=== PATIENT | female | born 2000 | race Caucasian/White ===

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

== ENCOUNTER 2022-01-28 17:07 | Emergency (ER) | payer OTHER, SELFPAY ==
--- NOTE | 2022-01-28 17:13 | ED.FEMALEGU ---
HPI - Female Genitourinary General Chief complaint: Urogenital-Female Stated complaint: UTI Time Seen by Provider: 01/28/22 17:13 Source: patient, RN notes reviewed and old records reviewed Mode of arrival: ambulatory Limitations: no limitations History of Present Illness HPI Narrative: 21-year-old female presents to the [facility] with mom with complaints of cloudy urine. She was at the plastic surgeon last Saturday and mom reports that she had a fever Almost to 100 , started giving her Tylenol. Patient had presented with her aunt. Aunt states that she knew something was wrong when she just got cranky and would not take out the garbage. Denies any chest pain, abdominal pain. No nausea vomiting or diarrhea. Reports fevers between 99 and 100 MD elicited complaint: UTI Related Data Home Medications Medication Instructions Recorded Confirmed clonidine HCl [Catapres] 0.2 mg PO DAILY 12/16/19 01/28/22 hydroxyzine HCl 50 mg PO BID 12/16/19 01/28/22 norethindrone-e.estradiol-iron 1 tablet PO DAILY 12/16/19 01/28/22 [June12/14 (28)] risperidone [Risperdal] 0.25 mg PO HS 12/16/19 01/28/22 sertraline [Zoloft] 100 mg PO DAILY 12/16/19 01/28/22 Allergies Allergy/AdvReac Type Severity Reaction Status Date / Time No Known Allergies Allergy Other Uncoded 06/04/20 10:07 Review of Systems Review of Systems: All systems reviewed & are unremarkable except as noted in HPI and below Constitutional: Constitutional: Reports as per HPI, Denies chills and Reports fatigue Eyes: Eyes: Reports no additional eye complaints ENT: Reports system reviewed and no additional complaints, except as documented Cardiovascular: Cardiovascular: Reports no additional cardiovascular complaints and Denies chest pain Respiratory: Respiratory: Reports no additional respiratory complaints, Denies cough and Denies dyspnea Gastrointestinal: Gastrointestinal: Reports no additional gastrointestinal complaints, Denies abdominal pain, Denies diarrhea, Denies nausea and Denies vomiting Genitourinary: Genitourinary: Reports as per HPI, Denies hematuria, Denies nocturia, Denies dysuria, Denies flank pain, Denies urinary incontinence and Denies vaginal discharge Comments: Cloudy urine Musculoskeletal: Musculoskeletal: Reports no additional musculoskeletal complaints and Denies back pain Integumentary/Breasts: Skin/Breast: Reports system reviewed and no additional complaints, except as docu Neurologic: Reports system reviewed and no additional complaints, except as documented Psychiatric: Psychiatric: Reports no additional psychiatric complaints Endocrine: Endocrine: Denies fatigue Allergic/Immunologic: Allergic/Immunologic: Reports no additional allergic/immunologic complaints PMFSH Past Medical History Medical History (Updated 01/28/22 @ 18:13 by Beverley Velez APRN) Anxiety Depression Insomnia Family History Family History Other No active medical problems Social History Social History Smoking status: Never smoker Alcohol intake: never Gender identity (if verbalized by the patient): Female Comments At the time of my signature, I reviewed and agree with the nursing past medical, surgical, social, and family history. There is no relevant family history pertinent to the patient complaint. Exam Const: General: healthy appearing, no acute distress and alert Nutritional Appearance: well nourished Orientation/consciousness: patient oriented x3 Limitations: no limitations HENMT: Head: normal to inspection Ears: external ears normal Eyes: Conjunctivae: conjunctivae normal Pupils: Equal, round and reactive pupils present Neck: Neck: normal visual inspection, no lymphadenopathy and no meningeal signs Chest: Chest palpation & inspection: normal inspection of the chest and abnormal inspection of the chest Resp: Effort & I
[2022-01-28 17:18] VITALS: BP 113/76; PULSE 93; RESP 16; TEMP 37; O2SAT 100
[2022-01-28 17:22] VITALS: BP 113/76; PULSE 93; RESP 16; TEMP 37; O2SAT 100
== END 2022-01-28 17:41 | disposition home or self-care (01) ==
PROVIDERS: Emergency Provider Nurse Practitioner
DX: N39.0 Urinary tract infection, site not specified (principal); F41.9 Anxiety disorder, unspecified; F32.A Depression, unspecified
CPT/HCPCS: 81003; 87077; 87086; 87186; 99213; G0463

== ENCOUNTER 2022-02-09 15:42 | Emergency (ER) | payer OTHER, SELFPAY ==
[2022-02-09 15:44] VITALS: BP 129/80; PULSE 110; RESP 14; O2SAT 97
--- NOTE | 2022-02-09 16:10 | PC.NURSE ---
contacted poison control, spoke with maura rodríguez.
--- NOTE | 2022-02-09 16:12 | PC.NURSE ---
pt reports she ingested the whole bottle of clonidine 0.2mg. States her father just and wants to kill herself to be with him. Reports hx of anxiety and depression. States she does self harm such as self mutilation and bites herself. Reports she feels safe at home but not safe with herself. States this is the first time she has actually thought of taking her life.
--- NOTE | 2022-02-09 16:36 | ED.PSYCH ---
HPI - Psych General Chief Complaint: Psychiatric Symptoms <Luis Eduardo Acosta MD - Last Filed: 02/09/22 21:57> Stated Complaint: overdose <Luis Eduardo Acosta MD - Last Filed: 02/09/22 21:57> Time Seen by Provider: 02/09/22 15:50 <Luis Eduardo Acosta MD - Last Filed: 02/09/22 21:57> Source: patient <Luis Eduardo Acosta MD - Last Filed: 02/09/22 21:57> History of Present Illness HPI Narrative: Patient presents with a clonidine ingestion. Reports she was trying to kill herself she had her clonidine filled on the 10th with 30 tablets which she took the whole bottle reports diffuse body aches. She denies prior suicide attempts but does report prior psychiatric admissions. Denies any lightheadedness or dizziness she does report nausea and vomiting. <Luis Eduardo Acosta MD - Last Filed: 02/09/22 21:57> Related Data Home Medications: Home Medications Medication Instructions Recorded Confirmed clonidine HCl [Catapres] 0.2 mg PO DAILY 12/16/19 01/28/22 hydroxyzine HCl 50 mg PO BID 12/16/19 01/28/22 norethindrone-e.estradiol-iron 1 tablet PO DAILY 12/16/19 01/28/22 [12/14 (28)] risperidone [Risperdal] 0.25 mg PO HS 12/16/19 01/28/22 sertraline [Zoloft] 100 mg PO DAILY 12/16/19 01/28/22 <Luis Eduardo Acosta MD - Last Filed: 02/09/22 21:57> Allergies/Adverse Reactions: Allergies Allergy/AdvReac Type Severity Reaction Status Date / Time No Known Allergies Allergy Other Uncoded 06/04/20 10:07 <Luis Eduardo Acosta MD - Last Filed: 02/09/22 21:57> Review of Systems Review of Systems: CONSTITUTIONAL: Denies fever, chills, or sweats. EYES: Denies visual changes, redness, or discharge. ENT: Denies rhinorrhea, congestion, sore throat, or otalgia. CARDIOVASCULAR: Denies chest pain, palpitations, or edema. RESPIRATORY: Denies cough or dyspnea. GASTROINTESTINAL: Denies abdominal pain, nausea, vomiting, or diarrhea. GENITOURINARY: Denies dysuria or hematuria. SKIN: Denies rash or itching. MUSCULOSKELETAL: Denies back pain, joint pain, or myalgia. NEUROLOGIC: Denies headache, numbness, dizziness, or weakness. PSYCHIATRIC: Denies anxiety or depression. <Luis Eduardo Acosta MD - Last Filed: 02/09/22 21:57> All systems reviewed & are unremarkable except as noted in HPI and below <Luis Eduardo Acosta MD - Last Filed: 02/09/22 21:57> PMFSH Past Medical History Medical History: Medical History Anxiety Depression Insomnia <Luis Eduardo Acosta MD - Last Filed: 02/09/22 21:57> Family History Family History: Family History Other No active medical problems <Luis Eduardo Acosta MD - Last Filed: 02/09/22 21:57> Social History Social History: Social History Smoking status: Never smoker Alcohol intake: never Substance use type: does not use Gender identity (if verbalized by the patient): Female <Luis Eduardo Acosta MD - Last Filed: 02/09/22 21:57> Exam Narrative: GENERAL: Well-appearing, well-nourished, and in no acute distress. HEAD: Normocephalic, atraumatic. EYES: PERRLA and EOMI. ENT: Nares clear, no rhinorrhea or epistaxis. Mucous membranes moist. NECK: Supple. No masses. No JVD CHEST: Clear to auscultation. No respiratory distress. No wheezes rales or rhonchi HEART: Regular rate and rhythm. No murmur heard. Normal peripheral pulses. ABDOMEN: Soft, nontender, nondistended, normal active bowel sounds. EXTREMITIES: Normal range of motion. No edema. SKIN: Warm, dry, no rash. NEURO: No focal deficits. Alert and oriented x3. <Luis Eduardo Acosta MD - Last Filed: 02/09/22 21:57> Course Course Emergency Course: 02/10/22 0844 care turned over to myself at shift change seen by myself agree with initial H&P. Currently awaiting psychiatric placement 02/10/22 1800 patient accepted to [facility]
--- NOTE | 2022-02-09 16:38 | ECG_ITS ---
Measurements Intervals [place] Rate: 90 P: 27 [place]: 127 QRS: 35 QRSD: 88 T: 26 QT: 348 QTc: 427 Interpretive Statements SINUS RHYTHM NORMAL ECG Electronically Signed On 02-10-2022 9:22:03 CDT by Gerber Curtis M.D.
[2022-02-09 17:26] LABS: Basophils Absolute Auto 0.1 K/mm3 (0.0-0.1); Basophils Percent Auto 0.4 % (0.2-1.2); Eosinophils Absolute Auto 0.1 K/mm3 (0-0.3); Hemoglobin 14.7 g/dL (12.0-15.0); Immature Granulocyte Absolute 0.04 K/mm3 (0.00-0.031); Immature Granulocyte Percent A 0.3 % (0-0.5); Lymphocytes Absolute Auto 2.98 K/mm3 (0.9-3.2); Lymphocytes Percent Auto 24.2 % (18.3-44.2); Mean Corpuscular HGB Conc 32.7 g/dl (32-36); Mean Corpuscular Hemoglobin 28.4 pg (26-34); Mean Corpuscular Volume 86.9 fl (80-100); Mean Platelet Volume 10.2 fl (7.4-10.4); Monocytes Absolute Auto 0.5 K/mm3 (0.1-0.6); Monocytes Percent Auto 4.1 % (2.6-8.5); Neutrophils Absolute Auto 8.6 K/mm3 (1.3-6.7); Platelet Count Result 340 k/mm3 (150-375); Red Blood Count 5.18 M/mm3 (4.2-5.4); Red Cell Distribution Width 13.3 % (11.5-14.5); White Blood Count 12.3 K/mm3 (4.5-10.0)
[2022-02-09 17:29] LABS: Add Urine Microscopic? NO; Appearance Urine Clear (Clear); Bilirubin Urine Negative (Negative); Blood Urine Negative (Negative); Color Urine Yellow (Yellow); Glucose Urine UA Negative (Negative); Ketones Urine Negative (Negative); Leukocyte Esterase Ur Negative LEU/UL (Negative); Nitrate Urine Negative (Negative); Protein Urine Negative (Negative); Specific Grav Ur 1.009 (1.001-1.035); Urobilinogen Urine Negative mg/dL (<2.0)
[2022-02-09 17:34] LABS: Acetaminophen < 10 ug/mL (10-30); Ethanol < 10 mg/dL (<10); Salicylate < 1.0 mg/dL (2-20)
[2022-02-09 17:35] LABS: Alanine Aminotransferase 20 U/L (4-35); Albumin Level 4.5 g/dL (3.5-5.1); Alkaline Phosphatase 74 U/L (38-126); Anion Gap 10 mmol/L (8-16); Aspartate Amino Transferase 23 U/L (14-36); Bilirubin,Total 0.3 mg/dL (0.2-1.3); Blood Urea Nitrogen 10 mg/dL (7-17); Carbon Dioxide 25 mmol/L (22-30); Chloride 106 mmol/L (98-107); Estimated CRCL calculation 125 ml/min; Estimated Glomerular Filt Rate > 60; Glucose 80 mg/dL (65-110); Potassium 4.1 mmol/L (3.4-5.0); Sodium 141 mmol/L (137-145)
[2022-02-09 17:43] LABS: Amphetamine Screen Urine Negative (Negative); Barbiturate Screen Urine Negative (Negative); Benzodiazepines Screen Urine Negative (Negative); Cannabinoid Screen Urine Negative (Negative); Cocaine Screen Urine Negative (Negative); Methadone Screen Urine Negative (Negative); Opiate Screen Urine Negative (Negative); Phencyclidine Screen Urine Negative (Negative)
--- NOTE | 2022-02-09 18:45 | PC.NURSE ---
Aunt of pt at bedside. Pt reassessed and asked questions for CSSR. Pt reports she no longer has thoughts of self harm or suicidal ideations. States she is feeling alot better. Pt given meal tray. Poison control called for update. Stated to continue monitoring patient for 4-6 hours. aware.
--- NOTE | 2022-02-09 19:50 | PC.NURSE ---
Pt resting on stretcher with no complaints at this time. Pt states she feels ok. Pt updated.
[2022-02-09 19:51] VITALS: BP 120/65; PULSE 94; RESP 18; O2SAT 100
--- NOTE | 2022-02-09 20:02 | PC.NURSE ---
RN spoke pts aunt Babs . Gave her an update.
[2022-02-09 20:43] VITALS: BP 115/70; PULSE 93; RESP 16; O2SAT 100
--- NOTE | 2022-02-09 20:43 | PC.NURSE ---
Pt updated on plans to speak with metal casting trades worker. Pt has no questions. Pt resting comfortably watching tv at tis time.
--- NOTE | 2022-02-09 20:49 | PC.NURSE ---
Crisis number called. States they will dispatch someone to the ER.
--- NOTE | 2022-02-09 21:03 | PC.NURSE ---
Crisis requesting us to contact [facility] as pt should qualify.
--- NOTE | 2022-02-09 21:15 | PC.NURSE ---
[facility] CONTACTED AND WILL SEND SOMEONE TO EVALUATE PATIENT WITHIN THE NEXT 2 HOURS.
--- NOTE | 2022-02-09 21:29 | PC.NURSE ---
Poison Control called to close pts case.
--- NOTE | 2022-02-09 21:40 | PC.NURSE ---
Kayleigh from [facility] states she will be here in about 30 minutes.
[2022-02-09 21:59] LABS: SARS-CoV-2 RNA PCR Negative
--- NOTE | 2022-02-09 22:30 | PC.NURSE ---
Crisis work speaking with pt at this time.
--- NOTE | 2022-02-09 22:54 | PC.NURSE ---
Crisis workers states pt will need placement. Will work on finding placement for pt.
[2022-02-09] MEDS: LORazepam (*CRX) 0.5 MG TABLET PO (23:30)
--- NOTE | 2022-02-09 23:45 | PC.NURSE ---
Pt tearful and crying states I do not want my mom mad at me. RN discussed plan of care for patient. Pt now speaking with aunt on what is going on.
--- NOTE | 2022-02-10 01:06 | PC.NURSE ---
Pt resting on stretcher. Pt aware waiting for placement at this time. Pt has no questions at this time.
[2022-02-10 01:07] VITALS: BP 125/58; PULSE 96; RESP 20; O2SAT 95
--- NOTE | 2022-02-10 02:54 | PC.NURSE ---
Pt becoming more upset. Pt rocking back and forth. ERP made aware. Order for Ativan
[2022-02-10] MEDS: LORazepam (*CRX) 0.5 MG TABLET PO (02:57)
--- NOTE | 2022-02-10 03:06 | PC.NURSE ---
Sitter at bedside. Pt has no belongings. Will monitor. Still waiting for placement.
--- NOTE | 2022-02-10 04:45 | PC.NURSE ---
Pt resting on stretcher. Pt appears calm at this time. No update from Crisis. Sitter remains at bedside.
[2022-02-10 06:06] VITALS: BP 128/80; PULSE 96; RESP 16; TEMP 36.6; O2SAT 96
--- NOTE | 2022-02-10 06:06 | PC.NURSE ---
Pt resting on stretcher with no needs at this time. Pt has no complaints. Vitals obtained. Pt sleeping. Will continue to monitor.
--- NOTE | 2022-02-10 06:09 | PC.NURSE ---
Message left with crisis answering line for update on placement for pt.
--- NOTE | 2022-02-10 06:27 | PC.NURSE ---
Kayleigh states she has no update on placement will continue to reach out for bed.
--- NOTE | 2022-02-10 07:09 | PC.NURSE ---
Report given to Valeria
--- NOTE | 2022-02-10 07:39 | PC.NURSE ---
assuming care of pt. ordered pt safety breakfast tray. pt resting w/ equal chest rise and fall. sitter at bedside.
--- NOTE | 2022-02-10 11:42 | PC.NURSE ---
Dr. Cain still wanting sitter to stay at bedside for elopement risk.
--- NOTE | 2022-02-10 11:45 | PC.NURSE ---
ordered pt safety lunch tray.
--- NOTE | 2022-02-10 14:12 | PC.NURSE ---
Jeremy called and requested for chart to be faxed to [facility] at [phone].
--- NOTE | 2022-02-10 14:32 | PC.NURSE ---
voluntary paperwork reviewed w/ pt and filled out. copy given to pt. faxed over chart and voluntary paperwork to [facility].
--- NOTE | 2022-02-10 15:34 | PC.NURSE ---
[facility] called and is accepting pt. accepting doctor is Dr. Ortega. [facility] will call back with room number and phone number to give report.
[2022-02-10 16:45] VITALS: BP 128/72; PULSE 87; RESP 17; O2SAT 100
--- NOTE | 2022-02-10 16:57 | PC.NURSE ---
ordered pt safety dinner tray.
--- NOTE | 2022-02-10 17:10 | PC.NURSE ---
called [facility] to check on status of a bed. they state to call back in the next 15 minutes.
--- NOTE | 2022-02-10 18:06 | PC.NURSE ---
called for update on bed. no answer. left a voicemail.
--- NOTE | 2022-02-10 18:33 | PC.NURSE ---
Pt to go to [facility] Room 5311B. [facility]
--- NOTE | 2022-02-10 19:10 | PC.NURSE ---
[facility] calling ED back to take report for bed 5311B.
--- NOTE | 2022-02-10 19:26 | PC.NURSE ---
Patient scored no risk on columbia scale, technical solutions engineer notified and ERP stated still requests sitter at bedside. Patient moved to room 15 at this time. Patient awaiting transport.
--- NOTE | 2022-02-10 19:31 | PC.NURSE ---
Per ED MD Hilton, pt still requires sitter although NO RISK on columbia. Pt moved to ED 15 at this time with sitter at bedside.
--- NOTE | 2022-02-10 19:34 | PC.NURSE ---
report given to Zoya NORTON.
--- NOTE | 2022-02-10 20:37 | PC.NURSE ---
[facility] here for patient transport to [facility]. Patient calm and cooperative upon leaving the ED. All of patient belongings and chart sent with patient and EMS.
== END 2022-02-10 20:38 ==
PROVIDERS: Emergency Medicine; Emergency Provider Emergency Medicine; PCP Pediatrics
DX: T46.5X2A Poisoning by other antihypertensive drugs, intentional self-harm, initial encounter (principal); Z20.822 Contact with and (suspected) exposure to COVID-19; F41.9 Anxiety disorder, unspecified; F32.A Depression, unspecified
CPT/HCPCS: 36415; 80053; 80307; 81003; 81025; 84443; 85025; 93005; 99285; A9270; C9803; U0003; U0005

== ENCOUNTER 2022-03-23 18:00 | Emergency (ER) | payer OTHER, SELFPAY ==
[2022-03-23 18:23] VITALS: BP 134/83; PULSE 97; RESP 16; TEMP 36.7; O2SAT 100
--- NOTE | 2022-03-23 20:36 | ED.RECABL ---
HPI - Recheck/Abnormal Lab/Rx General Chief Complaint: Recheck/Abnormal Lab/Rx Stated Complaint: pump exposed after surgery Time Seen by Provider: 03/23/22 19:38 Source: patient and family Mode of arrival: ambulatory History of Present Illness HPI narrative: 21-year-old female presents today with complaints of pain at site of ADAN drain. Patient had a lipoma removed at [facility]. Per aunt the dressing fell off at the ADAN drain site and patient has complained of pain. Original dressing still in place to upper back. Surgeon stated to leave dressing intact until her follow-up visit per family. Patient using ibuprofen and [place] at home for pain. Pain currently tolerable rating a 4 out of a 10. Patient states pain is increased when she tries to lay down. Does not take Related Data Home Medications Medication Instructions Recorded Confirmed docusate sodium PO 03/23/22 hydrocodone-acetaminophen 03/23/22 ibuprofen 03/23/22 norethindrone ac-eth estradiol tablet 03/23/22 [12/14 (21)] risperidone mg 03/23/22 sertraline mg 03/23/22 Allergies Allergy/AdvReac Type Severity Reaction Status Date / Time No Known Allergies Allergy Other Uncoded 06/04/20 10:07 Review of Systems Review of Systems: CONSTITUTIONAL: Denies fever, chills, or sweats. EYES: Denies visual changes, redness, or discharge. ENT: Denies rhinorrhea, congestion, sore throat, or otalgia. CARDIOVASCULAR: Denies chest pain, palpitations, or edema. RESPIRATORY: Denies cough or dyspnea. GASTROINTESTINAL: Denies abdominal pain, nausea, vomiting, or diarrhea. GENITOURINARY: Denies dysuria or hematuria. SKIN: Denies rash or itching. MUSCULOSKELETAL: Left shoulder pain at ADAN drain site. Denies back pain, joint pain, or myalgia. NEUROLOGIC: Denies headache, numbness, dizziness, or weakness. PSYCHIATRIC: Denies anxiety or depression. [facility] Past Medical History Medical History Anxiety Depression Insomnia Family History Family History Other No active medical problems Social History Social History Smoking status: Never smoker Alcohol intake: never Substance use type: does not use Gender identity (if verbalized by the patient): Female Exam Narrative: GENERAL: Well-appearing, well-nourished, and in no acute distress. HEAD: Normocephalic, atraumatic. EYES: PERRLA and EOMI. ENT: Nares clear, no rhinorrhea or epistaxis. Mucous membranes moist. Oropharynx without tonsillar hypertrophy exudate or other lesions. Bilateral TMs pearly reid nonbulging NECK: Supple. No adenopathy or masses. No carotid bruits or JVD CHEST: Clear to auscultation. No respiratory distress. No wheezes rales or rhonchi HEART: Regular rate and rhythm. No murmur heard. Normal peripheral pulses. ABDOMEN: Soft, nontender, nondistended, normal active bowel sounds. EXTREMITIES: Normal range of motion. No edema. SKIN: Surgical wound noted to upper back healing well, no erythema, warmth, or purulent drainage. ADAN drain noted to left upper back sutured in place. Erythema noted at insertion site but no purulent drainage, or warmth. NEURO: No focal deficits. Alert and oriented x3. PSYCH: Normal mood and affect. Course Vital Signs Vital signs: Vital Signs Temperature 36.7 C 03/23/22 18:23 Pulse Rate 97 03/23/22 18:23 Respiratory Rate 16 03/23/22 18:23 Blood Pressure 134/83 03/23/22 18:23 Pulse Oximetry 100 03/23/22 18:23 Temperature 36.7 C 03/23/22 18:23 Pulse Rate 97 03/23/22 18:23 Respiratory Rate 16 03/23/22 18:23 Blood Pressure 134/83 03/23/22 18:23 Pulse Oximetry 100 03/23/22 18:23 MDM - Recheck/Abnormal Lab/Rx MDM Narrative Medical decision making narrative: HPI as noted. Surgical wounds appear to be healing well. No signs of infection. ADAN drain sutured i
== END 2022-03-23 21:00 | disposition home or self-care (01) ==
PROVIDERS: Emergency Provider Nurse Practitioner Family; PCP Pediatrics
DX: Z48.01 Encounter for change or removal of surgical wound dressing (principal); F41.9 Anxiety disorder, unspecified; F32.A Depression, unspecified
CPT/HCPCS: 99282

== ENCOUNTER 2022-11-03 14:44 | Emergency (ER) | payer MEDICAID, SELFPAY ==
--- NOTE | 2022-11-03 16:02 | ED.EAR ---
HPI - Ear Problem General Chief complaint: Ear Stated complaint: throbbing pain on rt ear Time Seen by Provider: 11/03/22 16:20 Source: patient and RN notes reviewed Mode of arrival: ambulatory Limitations: no limitations History of Present Illness HPI Narrative: 21-year-old female presents concern for 5 day history of right ear pain and fullness. She denies upper respiratory symptoms. She denies drainage from the ear. MD Complaint: ear pain Related Data Home Medications Medication Instructions Recorded Confirmed norethindrone acetate 1 mg-ethinyl 1 tablet PO DAILY 03/23/22 11/03/22 estradiol 20 mcg tablet (Junel) risperidone 0.25 mg tablet 0.25 mg PO DAILY 03/23/22 11/03/22 sertraline 100 mg tablet 100 mg PO DAILY 03/23/22 11/03/22 Allergies Allergy/AdvReac Type Severity Reaction Status Date / Time No Known Allergies Allergy Other Uncoded 11/03/22 15:33 Review of Systems Review of Systems: CONSTITUTIONAL: Denies malaise, chills, sweats, or fever. EYES: Denies visual changes, redness, or discharge. ENT: Denies rhinorrhea, congestion, sinus pain, and sore throat. Reports right ear pain CARDIOVASCULAR: Denies chest pain, palpitations, or edema. RESPIRATORY: Denies cough. Denies dyspnea. GASTROINTESTINAL: Denies abdominal pain, nausea, vomiting, diarrhea SKIN: Denies rash or itching. MUSCULOSKELETAL: Denies myalgia. NEUROLOGIC: Denies headache. All systems reviewed & are unremarkable except as noted in HPI and below PMFSH Past Medical History Medical History Anxiety Depression Insomnia Family History Family History Other No active medical problems Social History Social History Smoking status: Never smoker Alcohol intake: never Substance use type: does not use Gender identity (if verbalized by the patient): Female Comments At time of signature, agree with nursing past medical, surgical, social and family history. There is no relevant family history pertinent to the presenting complaint Exam Narrative: GENERAL: Well-appearing, well-nourished, and in no acute distress. HEAD: Normocephalic EYES: PERRLA, conjunctivae clear ENT: Nares clear. Mucous membranes moist. Left TM pearly reid with dull light reflex, will right TM not visible to to discharge and EAC erythema and edema; right tragal tenderness. Oropharynx not erythematous without lesions. Tonsils not enlarged and without exudate, no drooling, no hoarseness, no trismus, uvula midline. NECK: Supple. No lymphadenopathy CHEST: Clear to auscultation, breath sounds equal. No wheezing, rhonchi, rales, or stridor. No respiratory distress, speaks in full sentences. HEART: Regular rate and rhythm. No murmur heard. SKIN: Warm, dry, no rash. NEURO: Alert and oriented x3. PSYCH: Normal mood and affect Course Course Emergency Course: Patient is aware of diagnosis, understands and agrees to treatment plan. Anticipatory guidance given. Patient agrees to follow-up as directed and is aware of reasons to seek care at the emergency department. Portions of this record may have been created with voice recognition software Level of Care: Express Care Visit Vital Signs Vital signs: Reviewed. Medical Decision Making MDM Narrative Medical decision making narrative: Differential diagnosis considered: [place] virus, strep pharyngitis, allergic rhinitis, upper respiratory tract infection, sinusitis, rhinosinusitis, nasopharyngitis. viral pharyngitis, otitis media, otitis externa, otitis effusion, cerumen impaction, foreign body. Exam findings show no acute concerns or changes; patient is non-toxic appearing and is in no distress. Patient is appropriate for outpatient treatment and follow-up. Critical Care Time Critical Care Time Critical Care Time: No Discharge Plan Discharge Clinical Impre
[2022-11-03 16:22] VITALS: BP 148/90; PULSE 83; RESP 20; TEMP 36.7; O2SAT 100
== END 2022-11-03 16:40 | disposition home or self-care (01) ==
PROVIDERS: Emergency Provider Nurse Practitioner; PCP Pediatrics
DX: H60.311 Diffuse otitis externa, right ear (principal); F41.9 Anxiety disorder, unspecified; F32.A Depression, unspecified
CPT/HCPCS: 99213; G0463